=== PATIENT | male | born 1950 | race Two or more races ===

== ENCOUNTER 2019-06-24 16:43 | Inpatient (IN) | payer OTHER ==
[~2019-06-24] VITALS: Ht 167.6 cm; Wt 90.7 kg
[2019-07-01] MEDS ORDERED: LOSARTAN-HCTZ1 EAC2 PO (11:54)
[2019-07-13] MEDS ORDERED: CIPRO500 MG PO (09:03)
[2019-07-13] MEDS ORDERED: INTESTINEX680 M1 PO (09:04)
[2019-07-13] MEDS ORDERED: FLAGYL500MG PO (09:04)
[2019-07-13] MEDS ORDERED: ULTRACET PO (09:04)
== END 2019-07-13 12:58 | disposition home or self-care (01) | DRG 331 ==
LOC: SURH 07-06 05:30 → SURG 07-06 05:30 → O/R 07-06 05:30 → SURG 07-06 09:15 → SURH 07-12 10:05
PROVIDERS: ADMIT Surgery
PROC: 07BC4ZX Excision of Pelvis Lymphatic, Percutaneous Endoscopic Approach, Diagnostic (ICD-10-PCS; 2019-07-06)
PROC: 0DBF4ZZ Excision of Right Large Intestine, Percutaneous Endoscopic Approach (ICD-10-PCS; principal; 2019-07-06 09:15)
DX: D12.2 Benign neoplasm of ascending colon (principal)